=== PATIENT | female | born 1945 | race Caucasian/White ===

== ENCOUNTER 2018-07-22 14:06 | Inpatient (IN) | payer OTHER ==
[2018-07-22] MEDS ORDERED: ADVAIR HFA 230-12 GM INH (14:39)
[2018-07-22] MEDS ORDERED: SPIRIVA18 MCG INH (14:39)
[2018-07-22 15:14] LABS: APTT 24.8 SECONDS (22.8-39.4); INR 1.09 (0.85-1.17); PROTIME 13.6 SECONDS (11.6-15.0)
[2018-07-22 15:19] LABS: ALKALINE PHOSPHATASE 102 U/L (46-116); ALT (SGPT) 18 U/L (10-68); CALC OSMOLALITY 268 mosm/kg (275-300); CALCIUM 9.1 mg/dL (8.5-10.1); CARBON DIOXIDE 35.8 mmol/L (21.0-32.0); CHLORIDE - SERUM 94 mmol/L (98-107); CREATININE - SERUM 0.5 mg/dL (0.6-1.3); GLUCOSE 112 mg/dL (74-106); POTASSIUM - SERUM 3.6 mmol/L (3.5-5.1); PROTEIN - SERUM 7.7 g/dL (6.4-8.2); SODIUM 134 mmol/L (136-145); UREA NITROGEN 12 mg/dL (7-18); eGFR NON AFRICAN AMERICAN > 90 mL/min (90-120)
[2018-07-22 15:29] LABS: HEMATOCRIT 38.5 % (36.0-48.0); HEMOGLOBIN 12.8 g/dL (12-16); MCH 30.3 pg (26.0-34.0); MCHC 33.2 g/dL (31.0-37.0); MEAN PLATELET VOLUME 8.7 fL (7.4-10.4); PLATELET COUNT 309 10x3/uL (130-400); RBC 4.23 10x6/uL (4.00-5.40); RDW 14.7 % (11.5-14.5); WBC 21.9 10x3/uL (4.8-10.8)
[2018-07-22 15:31] LABS: CKMB 1.2 U/L (0.0-3.6); CREATINE KINASE 35 UL (21-215); PRO BNP 50 pg/mL (0-125)
[2018-07-22 15:58] LABS: TROPONIN-I < 0.017 ng/mL (0.000-0.060)
[2018-07-22 16:00] VITALS: BP 122/56
[2018-07-22 16:15] LABS: EOSINOPHILS 1 % (0-7); LYMPHOCYTES 13 % (15-50); MONOCYTES 4 % (2-11); NEUTROPHILS 81 % (40-80); PLATELET ESTIMATE NORMAL
[2018-07-22 17:00] VITALS: BP 118/76
--- NOTE | 2018-07-22 17:20 | NUR ---
IV ROCEPHIN INFUSION COMPLETE AT THIS TIME.
[2018-07-22 17:50] VITALS: BP 117/58
--- NOTE | 2018-07-22 18:20 | NUR ---
ARRIVE TO ROOM VIA STRETCHER. AMBULATES TO BED INDEPENDENTLY. HOME OXYGEN TAKE LABELLED WITH PATIENT STICKER. GAIT STEADY. AZITHROMYCIN INFUSING ORDERED. ALERT AND ORIENTED X4. CONTINUE ADMISSION PROCESS. CONTINUE PLAN OF CARE AND SAFETY PRECAUTIONS.
[2018-07-22] MEDS ORDERED: HYDROCHLOROTH12.5 M1 PO (18:29)
[2018-07-22] MEDS ORDERED: ALBUTEROL SULF8.5 GM INH (18:29)
[2018-07-22] MEDS ORDERED: BUSPAR5 MG PO (18:30)
[2018-07-22] MEDS ORDERED: PULMICORT0.25 MG/1 INH (18:31)
[2018-07-22 18:40] VITALS: BP 114/84; BMI 21.3
--- NOTE | 2018-07-22 19:35 | NUR ---
PATIENT RESTING IN BED AND DENIES NEEDS AT THIS TIME. BED IN LOWEST POSITION AND CALL LIGHT WITHIN REACH. ENCOURAGED THE PATIENT TO CALL IF SHE HAS NEEDS. WILL CONTINUE TO MONITOR.
[2018-07-22 20:00] VITALS: BP 125/67
[2018-07-23] VITALS: BP 126/72
[2018-07-23 04:00] VITALS: BP 122/64
[2018-07-23 06:09] LABS: BASOPHILS 0 % (0-2); EOSINOPHILS 0 % (0-7); HEMATOCRIT 34.9 % (36.0-48.0); HEMOGLOBIN 11.4 g/dL (12-16); IMMATURE GRANULOCYTES 0.2 % (0-5); LYMPHOCYTES 2.8 % (15-50); MCH 29.9 pg (26.0-34.0); MCHC 32.7 g/dL (31.0-37.0); MCV 91.6 fL (80.0-100.0); MEAN PLATELET VOLUME 8.6 fL (7.4-10.4); MONOCYTES 1.4 % (2-11); NEUTROPHILS 95.6 % (40-80); PLATELET COUNT 321 10x3/uL (130-400); RBC 3.81 10x6/uL (4.00-5.40); RDW 14.8 % (11.5-14.5)
[2018-07-23 06:45] LABS: WBC 15.4 10x3/uL (4.8-10.8)
[2018-07-23 06:49] LABS: ALBUMIN 2.5 g/dL (3.4-5.0); ALKALINE PHOSPHATASE 87 U/L (46-116); ALT (SGPT) 16 U/L (10-68); BILIRUBIN - TOTAL 0.16 mg/dL (0.2-1.3); CALC OSMOLALITY 277 mosm/kg (275-300); CALCIUM 8.8 mg/dL (8.5-10.1); CARBON DIOXIDE 36.6 mmol/L (21.0-32.0); CHLORIDE - SERUM 100 mmol/L (98-107); CREATININE - SERUM 0.4 mg/dL (0.6-1.3); GLUCOSE 157 mg/dL (74-106); MAGNESIUM - SERUM 2.1 mg/dL (1.8-2.4); PROTEIN - SERUM 6.8 g/dL (6.4-8.2); SODIUM 138 mmol/L (136-145); UREA NITROGEN 10 mg/dL (7-18); eGFR NON AFRICAN AMERICAN > 90 mL/min (90-120)
--- NOTE | 2018-07-23 07:20 | NUR ---
PT ALERT AND ORIENTED, SITTING UP IN BED. UP AD ALCIRA. SCDS ON. EXPIRATORY WHEEZES ASCULTATED BILATERAL UPPER LOBES, LLL AND RML. ON 4.5L O2, NC. STRICT I&O. ON TELEMETRY 97 SR. IV TO LEFT AC, SL. SITE PATENT WITHOUT REDNESS OR SWELLING. NO C/O PAIN. NO S/S OF ACUTE DISTRESS NOTED. CALL LIGHT IN REACH. PT DENIES ANYTHING FURTHER AT THIS TIME. WILL CONTINUE TO MONITOR.
[2018-07-23 08:27] VITALS: BP 107/55
[2018-07-23 09:51] VITALS: BMI 21.2
[2018-07-23 16:12] VITALS: BP 108/56
--- NOTE | 2018-07-23 18:35 | NUR ---
I have reviewed this patient and I concur with the Shift Assessment completed by the Licensed Practical Nurse today this shift.
--- NOTE | 2018-07-23 19:24 | NUR ---
PT RESTING IN BED, EYES OPEN. NO C/O PAIN. NO S/S OF ACUTE DISTRESS NOTED. CALL LIGHT IN REACH. DENIES ANYTHING FURTHER.
[2018-07-23 20:00] VITALS: BP 107/59
[2018-07-24] VITALS: BP 121/64
[2018-07-24 04:30] VITALS: BP 118/66
[2018-07-24 07:41] LABS: HEMATOCRIT 34.9 % (36.0-48.0); HEMOGLOBIN 11.3 g/dL (12-16); MCH 29.9 pg (26.0-34.0); MCHC 32.4 g/dL (31.0-37.0); MCV 92.3 fL (80.0-100.0); MEAN PLATELET VOLUME 8.7 fL (7.4-10.4); PLATELET COUNT 393 10x3/uL (130-400); RBC 3.78 10x6/uL (4.00-5.40); RDW 14.8 % (11.5-14.5); WBC 21.6 10x3/uL (4.8-10.8)
[2018-07-24 07:53] VITALS: BP 125/60
[2018-07-24 07:54] LABS: ALBUMIN 2.7 g/dL (3.4-5.0); ALKALINE PHOSPHATASE 87 U/L (46-116); BILIRUBIN - TOTAL 0.17 mg/dL (0.2-1.3); CALCIUM 8.8 mg/dL (8.5-10.1); CARBON DIOXIDE 36.8 mmol/L (21.0-32.0); CHLORIDE - SERUM 98 mmol/L (98-107); CREATININE - SERUM 0.5 mg/dL (0.6-1.3); GLUCOSE 130 mg/dL (74-106); POTASSIUM - SERUM 3.8 mmol/L (3.5-5.1); PROTEIN - SERUM 6.9 g/dL (6.4-8.2); SODIUM 136 mmol/L (136-145); eGFR NON AFRICAN AMERICAN > 90 mL/min (90-120)
[2018-07-24 07:55] LABS: ALT (SGPT) 28 U/L (10-68); CALC OSMOLALITY 274 mosm/kg (275-300); UREA NITROGEN 14 mg/dL (7-18)
[2018-07-24 08:44] LABS: LYMPHOCYTES 6 % (15-50); MONOCYTES 8 % (2-11); NEUTROPHILS 84 % (40-80); PLATELET ESTIMATE NORMAL
[2018-07-24 11:58] VITALS: BP 115/57
--- NOTE | 2018-07-24 15:58 | NUR ---
I have reviewed this patient and I concur with the Shift Assessment completed by the Licensed Practical Nurse today this shift.
--- NOTE | 2018-07-24 16:20 | MORECARE ---
CASE MANAGEMENT DISCHARGE SUMMARY PATIENT: DEMETRIS COHN UNIT: [id number] ADM DATE: 07/22/18 AGE: 72 : 43 SEX: F ROOM/BED: D.1210 AUTHOR: TEODORO CALVO PHYSICIAN: REFERRING PHYSICIAN: LIZ RIDLEY MD DATE OF SERVICE: 07/24/18 Discharge Plan Patient Name: DEMETRIS COHN Facility: [facility]:[place] : 1945 Planned Disposition: Anticipated Discharge Date: Discharge Date: Expected LOS: Initial Reviewer: [id number] Initial Review Date: 07/24/2018 Generated: 07/24/18 5:20 pm Comments DCP- Discharge Planning Updated by [email or web address]: Theresa Hilario on 07/24/18 3:[address] Patient Name: DEMETRIS COHN Admission Status: ER Accout number: [id number] Admission Date: 07-22-2018 : 1945 Admission Diagnosis: Attending: MAME RIDLEY Current LOS: 2 Anticipated DC Date: Planned Disposition: Primary Insurance: GIVTED Discharge Planning Comments: CM MEET WITH PT AFTER GETTING VERBAL CONSENT TO CONTINUE WITH INITAL ASSESSMENT AND DISCHARGE NEEDS. PT LIVES AT HOME ALONE AND STATES HOME IS A SAFE DISCHARGE. PT HAS O2 AND NEBULIZERS AT HOME. SHE STATES MAY NEED MEALS ON WHEELS, HH, OR IPRH WHEN DISCHARGED. CM WILL FOLLOW AND ASSIST WITH DC NEEDS. Quiller Hand: Theresa Hilario DCPIA - Discharge Planning Initial Assessment Updated by [id number]: Theresa Hilario on 07/24/18 4:14 pm * Is the patient Alert and Oriented? Yes * PCP [facility] * [facility] * ADLs Independent * Equipment Nebulizer Oxygen * Community resources currently utilized None * Additional services required to return to the preadmission environment? No * Can the patient safely return to the preadmission environment? Yes * Has this patient been hospitalized within the prior 30 days at any hospital? No Patient Name: DEMETRIS COHN Page [id number] at 1620 All edits/amendments must be made on the electronic document DICTATION DATE: 07/24/18 1614 GUEST HISTORY CLERK: DM 07/24/181618 RPT#: [id number] DC DATE: STATUS: ADM IN [facility] [address] [place] [address] END OF REPORT
[2018-07-24 16:42] VITALS: BP 141/67
--- NOTE | 2018-07-24 16:48 | NUR ---
UPON ENTERING THE PATIENTS ROOM THIS NURSE SAW THE PATIENT USING A RESCUE ALBUTEROL INHALER, 3 PUFFS. EDUCATION ON PATIENT SAFETY/POLICY ABOUT TAKING OR USING HOME MEDICATIONS IS NOT SAFE AND AGAINST POLICY TO HAVE IN THE ROOMS. THERE IS ALSO A WHITE MEDICATION BOTTLE IN THE TOP DRAWER. WHEN THIS WAS TOLD TO THE PATIENT SHE BECAME VERY UPSET STATING 'IF YOU TAKE THAT AND TELL ME I CAN NOT HAVE IT I WILL LEAVE OUT THE FRONT DOOR". I TRIED TO EXPLAIN SAFETY TO HER, SHE WAS NOT INTERESTED. THIS INFORMATION WAS PASSED ON TO HER NURSE, JUAN JOSE WELL RTSHOAIB.
[2018-07-24] MEDS ORDERED: HYDROCHLOROTH12.5 M1 PO (17:20)
--- NOTE | 2018-07-24 18:00 | NUR ---
PATIENT RESTING COMFORTABLY WATCHING TV. NO SIGNS OF DISTRESS. ALL NEEDS MET AT THIS TIME.
[2018-07-25 06:52] LABS: BASOPHILS 0 % (0-2); EOSINOPHILS 0 % (0-7); HEMATOCRIT 33.6 % (36.0-48.0); HEMOGLOBIN 10.9 g/dL (12-16); IMMATURE GRANULOCYTES 0.2 % (0-5); LYMPHOCYTES 6.1 % (15-50); MCH 30.2 pg (26.0-34.0); MCHC 32.4 g/dL (31.0-37.0); MCV 93.1 fL (80.0-100.0); MEAN PLATELET VOLUME 8.4 fL (7.4-10.4); NEUTROPHILS 86.7 % (40-80); PLATELET COUNT 315 10x3/uL (130-400); RBC 3.61 10x6/uL (4.00-5.40); RDW 14.8 % (11.5-14.5)
[2018-07-25 07:07] LABS: WBC 12.8 10x3/uL (4.8-10.8)
[2018-07-25 07:09] LABS: ALBUMIN 2.4 g/dL (3.4-5.0); ALKALINE PHOSPHATASE 75 U/L (46-116); BILIRUBIN - TOTAL 0.19 mg/dL (0.2-1.3); CALC OSMOLALITY 279 mosm/kg (275-300); CALCIUM 8.6 mg/dL (8.5-10.1); CARBON DIOXIDE 38.4 mmol/L (21.0-32.0); CHLORIDE - SERUM 99 mmol/L (98-107); CREATININE - SERUM 0.5 mg/dL (0.6-1.3); GLUCOSE 132 mg/dL (74-106); POTASSIUM - SERUM 4.3 mmol/L (3.5-5.1); PROTEIN - SERUM 6.3 g/dL (6.4-8.2); SODIUM 139 mmol/L (136-145); UREA NITROGEN 13 mg/dL (7-18); eGFR NON AFRICAN AMERICAN > 90 mL/min (90-120)
[2018-07-25 07:12] LABS: ALT (SGPT) 17 U/L (10-68)
--- NOTE | 2018-07-25 07:25 | NUR ---
i agree with cut roll machine operator assessment.
[2018-07-25 08:03] VITALS: BP 122/80
--- NOTE | 2018-07-25 10:34 | NUR ---
PATIENT C/O CONSTIPATION; REQUESTS MIRALAX. ALSO C/O STUFFY NOSE; REQUESTS SALINE MIST.
[2018-07-25 12:26] VITALS: BP 116/62
--- NOTE | 2018-07-25 13:26 | NUR ---
I have reviewed this patient and I concur with the Shift Assessment completed by the Licensed Practical Nurse today this shift.
--- NOTE | 2018-07-25 16:30 | NUR ---
WENT INTO ROOM AND NOTED THAT LEVAQUIN THAT WAS HUNG EARLIER DID NOT RUN. WHEN STARTED RUNNING IV WAS LEAKING AND INFILTRATED. ATTEMPTED TWICE TO RESITE BUT WAS UNABLE. NO IV ACCESS.
[2018-07-25 17:21] VITALS: BP 156/78
[2018-07-25 21:00] VITALS: BP 137/76
--- NOTE | 2018-07-26 02:39 | NUR ---
1930 REPORT RECIEVED, SHIFT ASSESSMENT COMPLETE, PLEASE SEE FLOW SHEETS FOR DETAILS. MILDLY TOLERATES BEING OFF BIPAP TO AMBULATE TO TOILET. VOIDED. BACK TO BED AND BACK ON BIPAP. BED LOW AND LOCKED, CALL LIGHT IN REACH. CONTINUEING CURRENT CARE PLANS. 2199 REQUESTED BIPAP OFF, THIS WAS PROVIDED AND TOLERATING WELL. 214 UP TO RESTROOM, UPON RETURN TO BED BIPAP BACK ON AND TOLERATING WELL. AMBULATION IS CONTUOUSLY MORE STRENUOUS ON PATIENT, NOW REQUIRES ONE PERSON ASSIST. BED LOW AND LOCKED, CALL LIGHT IN REACH. WILL CONTINUE PLAN OF CARE.
--- NOTE | 2018-07-26 07:00 | NUR ---
RESTING QUIETLY IN BED, ALERT, ORIENTED, REQUESTING ASSIST WITH TRANSFERRING TO BR, IV TO RIGHT AC HIGHLY POSITIONAL. DENIES PAIN OR FURTHER NEEDS, CALL LIGHT AT HAND, INSTRUCTED TO CALL WITH NEEDS.
[2018-07-26 07:58] LABS: BASOPHILS 0 % (0-2); EOSINOPHILS 0.1 % (0-7); HEMATOCRIT 35.1 % (36.0-48.0); HEMOGLOBIN 11.2 g/dL (12-16); IMMATURE GRANULOCYTES 0.3 % (0-5); LYMPHOCYTES 2.5 % (15-50); MCH 29.3 pg (26.0-34.0); MCHC 31.9 g/dL (31.0-37.0); MCV 91.9 fL (80.0-100.0); MEAN PLATELET VOLUME 8.6 fL (7.4-10.4); MONOCYTES 2.1 % (2-11); PLATELET COUNT 356 10x3/uL (130-400); RBC 3.82 10x6/uL (4.00-5.40)
[2018-07-26 08:04] VITALS: BP 128/72
[2018-07-26 08:04] LABS: WBC 16.5 10x3/uL (4.8-10.8)
[2018-07-26 08:05] LABS: % SATURATION 6 % (15-55); IRON 15 ug/dl (35-150); TOTAL IRON BIND CAPACITY 227 ug/dl (260-445); UNSAT IRON BIND CAPACITY 212 ug/dl (150-375)
[2018-07-26 08:22] LABS: ALBUMIN 2.5 g/dL (3.4-5.0); ALKALINE PHOSPHATASE 79 U/L (46-116); ALT (SGPT) 16 U/L (10-68); CALC OSMOLALITY 278 mosm/kg (275-300); CALCIUM 8.6 mg/dL (8.5-10.1); CARBON DIOXIDE 34.7 mmol/L (21.0-32.0); CHLORIDE - SERUM 98 mmol/L (98-107); CREATININE - SERUM 0.4 mg/dL (0.6-1.3); FERRITIN 124 ng/mL (3-244); GLUCOSE 172 mg/dL (74-106); MAGNESIUM - SERUM 1.9 mg/dL (1.8-2.4); PHOSPHOROUS 3.4 mg/dL (2.5-4.9); POTASSIUM - SERUM 3.7 mmol/L (3.5-5.1); PRE-ALBUMIN 13.9 mg/dL (18.0-35.7); PROTEIN - SERUM 6.6 g/dL (6.4-8.2); SODIUM 137 mmol/L (136-145); UREA NITROGEN 14 mg/dL (7-18); eGFR NON AFRICAN AMERICAN > 90 mL/min (90-120)
--- NOTE | 2018-07-26 09:48 | MORECARE ---
CASE MANAGEMENT DISCHARGE SUMMARY PATIENT: DEMETRIS COHN UNIT: [id number] ADM DATE: 07/22/18 AGE: 72 : 43 SEX: F ROOM/BED: D.1210 AUTHOR: TEODORO CALVO PHYSICIAN: REFERRING PHYSICIAN: LIZ RIDLEY MD DATE OF SERVICE: 07/26/18 Discharge Plan Patient Name: DEMETRIS COHN Facility: [facility]:[place] : 1945 Planned Disposition: Anticipated Discharge Date: Discharge Date: Expected LOS: Initial Reviewer: [id number] Initial Review Date: 07/24/2018 Generated: 07/26/18 10:47 am DCP- Discharge Planning Updated by [id number]: Theresa Hilario on 07/24/18 3:[address] Patient Name: DEMETRIS COHN Admission Status: ER Accout number: [id number] Admission Date: 07-22-2018 : 1945 Admission Diagnosis: Attending: MAME RIDLEY Current LOS: 2 Anticipated DC Date: Planned Disposition: Primary Insurance: [employer] Discharge Planning Comments: CM MEET WITH PT AFTER GETTING VERBAL CONSENT TO CONTINUE WITH INITAL ASSESSMENT AND DISCHARGE NEEDS. PT LIVES AT HOME ALONE AND STATES HOME IS A SAFE DISCHARGE. PT HAS O2 AND NEBULIZERS AT HOME. SHE STATES MAY NEED MEALS ON WHEELS, HH, OR IPRH WHEN DISCHARGED. CM WILL FOLLOW AND ASSIST WITH DC NEEDS. Licensed Electrician: Theresa Hilario DCPIA - Discharge Planning Initial Assessment Updated by [id number]: Theresa Hilario on 07/24/18 4:14 pm * Is the patient Alert and Oriented? Yes * PCP [facility] * [facility] * ADLs Independent * Equipment Nebulizer Oxygen * Community resources currently utilized None * Additional services required to return to the preadmission environment? No * Can the patient safely return to the preadmission environment? Yes * Has this patient been hospitalized within the prior 30 days at any hospital? No Last DP export: 07/24/18 3:20 p Patient Name: DEMETRIS COHN Page 53164 at 0948 All edits/amendments must be made on the electronic document DICTATION DATE: 07/26/18946 TOBACCO CURER: KIM 07/26/18946 RPT#: [id number] DC DATE: STATUS: ADM IN [facility] [address] [place] [address] END OF REPORT
[2018-07-26 13:00] VITALS: BP 149/71
[2018-07-26 19:51] VITALS: BP 130/65
--- NOTE | 2018-07-26 19:55 | NUR ---
EVENING ROUNDS COMPLETED. REPORT RECEIVED. PT SITTING UP IN BED WITH EYES OPEN, RR EVEN AND UNLABORED. OXYGEN AT 4 LITERS BY NASAL CANNULA. BED IN LOW POSITION. NO S/S OF DISTRESS NOTED. INTRODUCED SELF TO PT. PT DENIES FURTHER NEEDS AT THIS TIME. CALL LIGHT IN REACH. WILL CTM.
[2018-07-27] VITALS (7 sets, daily range): BP systolic 124–143; BP diastolic 59–72
--- NOTE | 2018-07-27 02:18 | NUR ---
ADMINISTERED ORDERED TUSSIONEX 5 MLS FOR PATIENT COMPLAINTS OF COUGH.
--- NOTE | 2018-07-27 04:52 | NUR ---
I have reviewed this patient and I concur with the Shift Assessment completed by the Licensed Practical Nurse today this shift.
--- NOTE | 2018-07-27 05:28 | NUR ---
PT REFUSES MORNING LAB DRAWS, PT STATES "ITS JUST TOO MUCH ON HER RIGHT NOW". WILL CTM.
[2018-07-27 07:13] LABS: ALBUMIN 2.3 g/dL (3.4-5.0); ALKALINE PHOSPHATASE 71 U/L (46-116); ALT (SGPT) 16 U/L (10-68); BILIRUBIN - TOTAL 0.25 mg/dL (0.2-1.3); CALC OSMOLALITY 276 mosm/kg (275-300); CALCIUM 8.7 mg/dL (8.5-10.1); CARBON DIOXIDE 35.2 mmol/L (21.0-32.0); CHLORIDE - SERUM 99 mmol/L (98-107); CREATININE - SERUM 0.5 mg/dL (0.6-1.3); GLUCOSE 147 mg/dL (74-106); MAGNESIUM - SERUM 2.1 mg/dL (1.8-2.4); PROTEIN - SERUM 6.2 g/dL (6.4-8.2); SODIUM 137 mmol/L (136-145); UREA NITROGEN 12 mg/dL (7-18); eGFR NON AFRICAN AMERICAN > 90 mL/min (90-120)
[2018-07-27 07:16] LABS: POTASSIUM - SERUM 4.5 mmol/L (3.5-5.1)
[2018-07-27 07:47] LABS: HEMATOCRIT 32.6 % (36.0-48.0); HEMOGLOBIN 10.6 g/dL (12-16); MCH 29.8 pg (26.0-34.0); MCHC 32.5 g/dL (31.0-37.0); MCV 91.6 fL (80.0-100.0); MEAN PLATELET VOLUME 9.1 fL (7.4-10.4); PLATELET COUNT 325 10x3/uL (130-400); RBC 3.56 10x6/uL (4.00-5.40); RDW 14.6 % (11.5-14.5); WBC 23.7 10x3/uL (4.8-10.8)
[2018-07-27 08:11] LABS: IMMUNOGLOBULIN A 241 mg/dL (64-422)
[2018-07-27 08:12] LABS: LYMPHOCYTES 1 % (15-50); MONOCYTES 4 % (2-11); NEUTROPHILS 92 % (40-80)
[2018-07-27 08:15] LABS: PLATELET ESTIMATE NORMAL
--- NOTE | 2018-07-27 09:16 | NUR ---
MORNING ASSESSMENT COMPLETE. SEE ASSESSMENT FLOWSHEET FOR FURTHER DETAILS. PT LYING IN BED AAO X4 TO PERSON, PLACE, TIME, AND SITUATION. DENIES NEEDS AT THIS TIME. CL IN REACH. SIDE RAILS UP X3 FOR PT SAEFTY. BED IN LOWEST POSITION.
--- NOTE | 2018-07-27 15:18 | NUR ---
R AC PIV INFILTRATED. RESITED 22G PIV TO L WRIST X1 ATTPEMPT. FLUSHES WELL. SITED C/D/I.
--- NOTE | 2018-07-27 17:29 | NUR ---
PT SITTING UP IN BED. DENIES NEEDS AT THIS TIME. NO SIGNS OF DISTRESS NOTED. WILL CONTINUE TO MONITOR
--- NOTE | 2018-07-27 19:10 | NUR ---
ALERT AND ORIENTED. DAUGHTER AT BEDSIDE. LUNGS PRESENT WITH BILATERAL EXPIRATORY WHEEZES. WEARING 4L NASAL CANNULA. TELE MONITOR 75 SINUS RHYTHM. LEFT WRIST IV INFUSING VANCOMYCIN AT THIS TIME. DENIES NEEDS. CALL LIGHT IN REACH.
[2018-07-28] VITALS: BP 122/57
--- NOTE | 2018-07-28 01:38 | NUR ---
I have reviewed this patient and I concur with the Shift Assessment completed by the Licensed Practical Nurse today this shift.
--- NOTE | 2018-07-28 02:29 | NUR ---
PT TOOK OFF BIPAP AT 0229 WORE FOR APPROX 2 HRS
[2018-07-28 04:00] VITALS: BP 125/66
[2018-07-28 06:04] LABS: BASOPHILS 0 % (0-2); EOSINOPHILS 0 % (0-7); HEMATOCRIT 32.2 % (36.0-48.0); HEMOGLOBIN 10.6 g/dL (12-16); IMMATURE GRANULOCYTES 0.3 % (0-5); LYMPHOCYTES 3.3 % (15-50); MCHC 32.9 g/dL (31.0-37.0); MCV 91.2 fL (80.0-100.0); MEAN PLATELET VOLUME 8.4 fL (7.4-10.4); MONOCYTES 2.8 % (2-11); NEUTROPHILS 93.6 % (40-80); PLATELET COUNT 327 10x3/uL (130-400); RBC 3.53 10x6/uL (4.00-5.40); RDW 14.5 % (11.5-14.5)
[2018-07-28 06:08] LABS: WBC 15.3 10x3/uL (4.8-10.8)
[2018-07-28 06:43] LABS: ALBUMIN 2.1 g/dL (3.4-5.0); ALKALINE PHOSPHATASE 62 U/L (46-116); ALT (SGPT) 16 U/L (10-68); BILIRUBIN - TOTAL 0.27 mg/dL (0.2-1.3); CALC OSMOLALITY 279 mosm/kg (275-300); CALCIUM 8.3 mg/dL (8.5-10.1); CARBON DIOXIDE 36.1 mmol/L (21.0-32.0); CHLORIDE - SERUM 99 mmol/L (98-107); CREATININE - SERUM 0.5 mg/dL (0.6-1.3); GLUCOSE 155 mg/dL (74-106); POTASSIUM - SERUM 4.3 mmol/L (3.5-5.1); PROTEIN - SERUM 5.9 g/dL (6.4-8.2); SODIUM 138 mmol/L (136-145); UREA NITROGEN 14 mg/dL (7-18); eGFR NON AFRICAN AMERICAN > 90 mL/min (90-120)
--- NOTE | 2018-07-28 07:38 | NUR ---
MORNING ASSESSMENT COMPLETE. PT UP IN BATHROOM. DENIES NEEDS AT THIS TIME. CL IN REACH. BED IN LOWEST POSITION. NO SIGNS OF DISTRESS NOTED.
[2018-07-28 07:56] VITALS: BP 127/66
[2018-07-28 12:06] VITALS: BP 139/61
--- NOTE | 2018-07-28 14:05 | NUR ---
L WRIST PIV INFILTRATED. RESITED TO R FA 22G X1 ATTEMPT. SITE FLUSHES WELL. C/D/I
[2018-07-28 15:56] VITALS: BP 147/60
--- NOTE | 2018-07-28 19:30 | NUR ---
GREETED PATIENT AND INTRODUCED MYSELF HER NURSE. PATIENT IS LAYING IN BED IN SUPINE POSITION. HOB AT 30 DEGREES. O2 AT 4L IN USE VIA NC. DENIES ANY NEEDS AT THIS TIME. CALL LIGHT IN REACH.
[2018-07-29] VITALS: BP 151/72
--- NOTE | 2018-07-29 03:22 | NUR ---
PATIENT RESTING QUIETLY LAYING ON LEFT SIDE. HOB AT 30 DEGREES. RESPIRATIONS EVEN. NO S/S OF DISTRESS. CALL LIGHT IN REACH.
[2018-07-29 04:00] VITALS: BP 127/67
[2018-07-29 05:48] LABS: BASOPHILS 0 % (0-2); EOSINOPHILS 0.1 % (0-7); HEMATOCRIT 31.8 % (36.0-48.0); HEMOGLOBIN 10.1 g/dL (12-16); IMMATURE GRANULOCYTES 0.3 % (0-5); LYMPHOCYTES 3.2 % (15-50); MCH 29.1 pg (26.0-34.0); MCHC 31.8 g/dL (31.0-37.0); MCV 91.6 fL (80.0-100.0); MEAN PLATELET VOLUME 8.4 fL (7.4-10.4); MONOCYTES 3.8 % (2-11); NEUTROPHILS 92.6 % (40-80); PLATELET COUNT 350 10x3/uL (130-400); RBC 3.47 10x6/uL (4.00-5.40); RDW 14.6 % (11.5-14.5); WBC 13.6 10x3/uL (4.8-10.8)
[2018-07-29 06:06] LABS: ALBUMIN 2.1 g/dL (3.4-5.0); ALKALINE PHOSPHATASE 60 U/L (46-116); ALT (SGPT) 17 U/L (10-68); BILIRUBIN - TOTAL 0.25 mg/dL (0.2-1.3); CALC OSMOLALITY 277 mosm/kg (275-300); CALCIUM 8.4 mg/dL (8.5-10.1); CARBON DIOXIDE 36.8 mmol/L (21.0-32.0); CHLORIDE - SERUM 100 mmol/L (98-107); CREATININE - SERUM 0.4 mg/dL (0.6-1.3); GLUCOSE 144 mg/dL (74-106); POTASSIUM - SERUM 4.2 mmol/L (3.5-5.1); PROTEIN - SERUM 5.8 g/dL (6.4-8.2); SODIUM 138 mmol/L (136-145); UREA NITROGEN 11 mg/dL (7-18); eGFR NON AFRICAN AMERICAN > 90 mL/min (90-120)
[2018-07-29 07:26] VITALS: BP 128/65
--- NOTE | 2018-07-29 07:40 | NUR ---
RECEIVED A/A/OX4. DENIES ANY PAIN OR DISCOMFORT AND VOICES NO REQUESTS. 02 ON VIA N/C AT 4 L/M WITH NOT RESP DISTRESS AT PRESENT TIME. STATES SHE DOES GET SOB WHEN SHE GETS UP TO BATHROOM. ASSESSMENT COMPLETED AND WILL CONTINUE POC.
--- NOTE | 2018-07-29 09:39 | NUR ---
Nutrition follow up Regular diet with 75% intake of meals yesterday BM today Pt reports appetite is normal and she is ordering Boost Pt has no questions about nutrition at this time RD following
[2018-07-29 12:39] VITALS: BP 141/66
--- NOTE | 2018-07-29 13:35 | MORECARE ---
CASE MANAGEMENT DISCHARGE SUMMARY PATIENT: DEMETRIS COHN UNIT: [id number] ADM DATE: 07/22/18 AGE: 72 : 43 SEX: F ROOM/BED: D.1210 AUTHOR: TEODORO CALVO PHYSICIAN: REFERRING PHYSICIAN: LIZ RIDLEY MD DATE OF SERVICE: 07/29/18 Discharge Plan Patient Name: DEMETRIS COHN Facility: [facility]:[place] : 1945 Planned Disposition: Anticipated Discharge Date: Discharge Date: Expected LOS: Initial Reviewer: [id number] Initial Review Date: 07/24/2018 Generated: 07/29/18 2:35 pm Comments DCP- Discharge Planning Updated by [id number]: Tiki Chino on 07/29/18 12:[address] Patient Name: DEMETRIS COHN Admission Status: ER Accout number: [id number] Admission Date: 07-22-2018 : 1945 Admission Diagnosis:SHORTNESS OF BREATH Attending: MAME RIDLEY Current LOS: 7 Anticipated DC Date: Planned Disposition: Primary Insurance: NOVASYSMCR Discharge Planning Comments: pt has home o2 thru [employer] and pt wants [employer] for trilogy.. analy signed [employer] is in process of getting pt set up. Skilled Trades Teacher: Tiki Chino DCP- Discharge Planning Updated by [id number]: Theresa Hilario on 07/24/18 3:[address] Patient Name: DEMETRIS COHN Admission Status: ER Accout number: [id number] Admission Date: 07-22-2018 : 1945 Admission Diagnosis: Attending: MAME RIDLEY Current LOS: 2 Anticipated DC Date: Planned Disposition: Primary Insurance: NOVASYSMCR Discharge Planning Comments: CM MEET WITH PT AFTER GETTING VERBAL CONSENT TO CONTINUE WITH INITAL ASSESSMENT AND DISCHARGE NEEDS. PT LIVES AT HOME ALONE AND STATES HOME IS A SAFE DISCHARGE. PT HAS O2 AND NEBULIZERS AT HOME. SHE STATES MAY NEED MEALS ON WHEELS, HH, OR IPRH WHEN DISCHARGED. CM WILL FOLLOW AND ASSIST WITH DC NEEDS. Skilled Trades Teacher: Theresa Hilario DCPIA - Discharge Planning Initial Assessment Updated by [id number]: Theresa Hilario on 07/24/18 4:14 pm * Is the patient Alert and Oriented? Yes * PCP [facility] * [facility] * ADLs Independent * Equipment Nebulizer Oxygen * Community resources currently utilized None * Additional services required to return to the preadmission environment? No * Can the patient safely return to the preadmission environment? Yes * Has this patient been hospitalized within the prior 30 days at any hospital? No Last DP export: 07/26/18 8:47 a Patient Name: DEMETRIS COHN Page 85647 at 1335 All edits/amendments must be made on the electronic document DICTATION DATE: 07/29/181333 CONCIERGE RECEPTIONIST: KIM 07/29/18 1334 RPT#: [id number] DC DATE: STATUS: ADM IN [facility] [address] [place] [address] END OF REPORT
[2018-07-29 16:33] VITALS: BP 125/69
--- NOTE | 2018-07-29 16:47 | MORECARE ---
CASE MANAGEMENT DISCHARGE SUMMARY PATIENT: DEMETRIS COHN UNIT: [id number] ADM DATE: 07/22/18 AGE: 72 : 43 SEX: F ROOM/BED: D.1210 AUTHOR: TEODORO CALVO PHYSICIAN: REFERRING PHYSICIAN: LIZ RIDLEY MD DATE OF SERVICE: 07/29/18 Discharge Plan Patient Name: DEMETRIS COHN Facility: [facility]:[place] : 1945 Planned Disposition: Anticipated Discharge Date: Discharge Date: Expected LOS: Initial Reviewer: [id number] Initial Review Date: 07/24/2018 Generated: 07/29/18 5:46 pm Comments DCP- Discharge Planning Updated by [id number]: Tiki Chino on 07/29/18 3:[address] Patient Name: DEMETRIS COHN Encounter No: [id number] : 1945 Primary Insurance: NOVASYSMCR Anticipated DC Date: Planned Disposition: External Planned Provider: : DCP follow-up note: Patient and family in agreement with discharge plan. No changes to plan. Case management will follow and assist as needed. Tiki NolviamackPatient Name: DEMETRIS COHN Admission Status: ER Accout number: [id number] Admission Date: 07-22-2018 : 1945 Admission Diagnosis:SHORTNESS OF BREATH Attending: MAME RIDLEY Current LOS: 7 Anticipated DC Date: Planned Disposition: Primary Insurance: NOVASYSMCR Discharge Planning Comments: Trilogy was approved and being delivered in am to pts room . Valuation Manager: Tiki Chino DCP- Discharge Planning Updated by [email or web address]: Tiki Chino on 07/29/18 12:[address] Patient Name: DEMETRIS COHN Admission Status: ER Accout number: [id number] Admission Date: 07-22-2018 : 1945 Admission Diagnosis:SHORTNESS OF BREATH Attending: MAME RIDLEY Current LOS: 7 Anticipated DC Date: Planned Disposition: Primary Insurance: NOVASYSMCR Discharge Planning Comments: pt has home o2 thru [employer] and pt wants [employer] for trilogy.. analy signed [employer] is in process of getting pt set up. Valuation Manager: Tikichaya De Souzaman DCP- Discharge Planning Updated by [email or web address]: Theresa Hilario on 07/24/18 3:[address] Patient Name: DEMETRIS COHN Admission Status: ER Accout number: [id number] Admission Date: 07-22-2018 : 1945 Admission Diagnosis: Attending: MAME RIDLEY Current LOS: 2 Anticipated DC Date: Planned Disposition: [facility] Discharge Planning Comments: CM MEET WITH PT AFTER GETTING VERBAL CONSENT TO CONTINUE WITH INITAL ASSESSMENT AND DISCHARGE NEEDS. PT LIVES AT HOME ALONE AND STATES HOME IS A SAFE DISCHARGE. PT HAS O2 AND NEBULIZERS AT HOME. SHE STATES MAY NEED MEALS ON WHEELS, HH, OR IPRH WHEN DISCHARGED. CM WILL FOLLOW AND ASSIST WITH DC NEEDS. Valuation Manager: Theresa Hilario DCPIA - Discharge Planning Initial Assessment Updated by [id number]: Theresa Hilario on 07/24/18 4:14 pm * Is the patient Alert and Oriented? Yes * PCP [facility] * [facility] * ADLs Independent * Equipment Nebulizer Oxygen * Community resources currently utilized None * Additional services required to return to the preadmission environment? No * Can the patient safely return to the preadmission environment? Yes * Has this patient been hospitalized within the prior 30 days at any hospital? No Coverage Notice Reviewer: [id number] - Tiki Chino Notice Issued Date-Time: 07/29/2018 9:30 Notice Type: Patient Choice Letter Notice Delivered To: Patient Relationship to Patient: Self Truck Rental Service Attendant Name: Delivery Method: HAND - Hand Delivered Jaz Days: Prior Verbal Notification: Recipient Understood Notice: Yes Recipient Signature: Yes Med Rec Note Co-signed by Attending: Coverage Notice Comment: Last DP export: 07/29/18 12:35 p Patient Name: DEMETRIS COHN Page [id number] at 1647 All edits/amendments must be made on the electronic document DICTATION DATE: 07/29/181645 DAIRY POWDER MIXER OPERATOR: KIM 07/29/181645 RPT#: [id number] DC DATE: STATUS: ADM IN [facility] [address] [place] [address] END OF REPORT
--- NOTE | 2018-07-29 19:15 | NUR ---
GREETED PATIENT AND INTRODUCED MYSELF. PATIENT IS LAYING IN BED WATCHING TV. PATIENT STATES SHE HAS HAD A GOOD DAY. DENIES ANY PAIN AT THIS TIME. DENIES ANY NEEDS. CALL LIGHT IN REACH.
[2018-07-29 20:00] VITALS: BP 125/75
--- NOTE | 2018-07-29 22:10 | NUR ---
DONNED BILEVEL 40 % FI02 SPO2 98 RR 23 PT TOLERATED APPLICATION WELL NO CYANOSIS EQUALATERAL EXCURSION NO IMMEDIATE S/S RESP DISTRESS
[2018-07-30] VITALS: BP 124/73
[2018-07-30 04:00] VITALS: BP 121/54
[2018-07-30 06:12] LABS: IGG SUBCLASS 1 468 mg/dL (248-810); IGG SUBCLASS 2 228 mg/dL (130-555); IGG SUBCLASS 3 93 mg/dL (15-102); IGG SUBCLASS 4 22 mg/dL (2-96); IMMUNOGLOBULIN G 772 mg/dL (700-1600)
[2018-07-30 07:06] LABS: BASOPHILS 0 % (0-2); EOSINOPHILS 0 % (0-7); HEMATOCRIT 31.2 % (36.0-48.0); HEMOGLOBIN 10.1 g/dL (12-16); IMMATURE GRANULOCYTES 0.3 % (0-5); LYMPHOCYTES 4.4 % (15-50); MCH 29.4 pg (26.0-34.0); MCHC 32.4 g/dL (31.0-37.0); MCV 90.7 fL (80.0-100.0); MEAN PLATELET VOLUME 8.2 fL (7.4-10.4); MONOCYTES 4.2 % (2-11); NEUTROPHILS 91.1 % (40-80); PLATELET COUNT 325 10x3/uL (130-400); RBC 3.44 10x6/uL (4.00-5.40); RDW 14.5 % (11.5-14.5); WBC 11.6 10x3/uL (4.8-10.8)
[2018-07-30 07:15] LABS: ALBUMIN 2.4 g/dL (3.4-5.0); ALKALINE PHOSPHATASE 63 U/L (46-116); ALT (SGPT) 18 U/L (10-68); BILIRUBIN - TOTAL 0.24 mg/dL (0.2-1.3); CALC OSMOLALITY 274 mosm/kg (275-300); CALCIUM 8.6 mg/dL (8.5-10.1); CARBON DIOXIDE 39.9 mmol/L (21.0-32.0); CHLORIDE - SERUM 99 mmol/L (98-107); CREATININE - SERUM 0.5 mg/dL (0.6-1.3); GLUCOSE 134 mg/dL (74-106); POTASSIUM - SERUM 4.6 mmol/L (3.5-5.1); SODIUM 137 mmol/L (136-145); UREA NITROGEN 11 mg/dL (7-18); eGFR NON AFRICAN AMERICAN > 90 mL/min (90-120)
[2018-07-30 08:20] VITALS: BP 128/62
--- NOTE | 2018-07-30 09:44 | NUR ---
ADMININSTERED MORNING MEDS WHOLE WITHOUT DIFFICULTY. DENIES ANY NEEDS OR PAIN. CONTINUES ON 3L VIA NC. NO SIGNS OF DISTRESS NOTED. CALL LIGHT WITHIN REACH, FALL PRECAUTIONS IN PLACE. WILL CONTINUE TO MONITOR
[2018-07-30 13:07] VITALS: BP 144/66
[2018-07-30 16:33] VITALS: BP 122/59
--- NOTE | 2018-07-30 18:10 | NUR ---
I have reviewed this patient and I concur with the Shift Assessment completed by the Licensed Practical Nurse today this shift.
[2018-07-30 19:27] LABS: APPEARANCE CLEAR (CLEAR); BILIRUBIN NEGATIVE (NEGATIVE); COLOR YELLOW (YELLOW); GLUCOSE NEGATIVE (NEGATIVE); KETONE NEGATIVE (NEGATIVE); NITRITE NEGATIVE (NEGATIVE); PROTEIN NEGATIVE (NEGATIVE); SPECIFIC GRAVITY 1.015 (1.005-1.020); UROBILINOGEN NORMAL (NORMAL)
[2018-07-30 21:34] VITALS: BP 133/70
--- NOTE | 2018-07-30 23:45 | NUR ---
PT IV INFILTRATED, RESTART IV , 22G PLACED IN RT AC, GOOD BLOOD FLOW, PT TOLLERATED WELL.
[2018-07-31] VITALS: BP 165/82
--- NOTE | 2018-07-31 02:15 | NUR ---
REST IN BED, CALL LIGHT IN REACH.
[2018-07-31 04:00] VITALS: BP 134/78
--- NOTE | 2018-07-31 04:28 | NUR ---
I AGREE WITH THE BEAUTY OPERATOR ASSESSMENT.
[2018-07-31 06:59] LABS: BASOPHILS 0 % (0-2); EOSINOPHILS 0.1 % (0-7); HEMATOCRIT 31.7 % (36.0-48.0); HEMOGLOBIN 10.3 g/dL (12-16); IMMATURE GRANULOCYTES 0.3 % (0-5); LYMPHOCYTES 4.4 % (15-50); MCH 29.3 pg (26.0-34.0); MCHC 32.5 g/dL (31.0-37.0); MCV 90.1 fL (80.0-100.0); MEAN PLATELET VOLUME 8.3 fL (7.4-10.4); MONOCYTES 3.3 % (2-11); NEUTROPHILS 91.9 % (40-80); PLATELET COUNT 370 10x3/uL (130-400); RBC 3.52 10x6/uL (4.00-5.40); RDW 14.5 % (11.5-14.5); WBC 11.9 10x3/uL (4.8-10.8)
[2018-07-31 07:22] LABS: ALBUMIN 2.4 g/dL (3.4-5.0); ALKALINE PHOSPHATASE 62 U/L (46-116); ALT (SGPT) 19 U/L (10-68); BILIRUBIN - TOTAL 0.26 mg/dL (0.2-1.3); CALC OSMOLALITY 276 mosm/kg (275-300); CALCIUM 8.5 mg/dL (8.5-10.1); CARBON DIOXIDE 36.8 mmol/L (21.0-32.0); CHLORIDE - SERUM 99 mmol/L (98-107); CREATININE - SERUM 0.5 mg/dL (0.6-1.3); GLUCOSE 130 mg/dL (74-106); POTASSIUM - SERUM 4.1 mmol/L (3.5-5.1); SODIUM 138 mmol/L (136-145); UREA NITROGEN 10 mg/dL (7-18); eGFR NON AFRICAN AMERICAN > 90 mL/min (90-120)
--- NOTE | 2018-07-31 08:00 | NUR ---
PT RESTING IN BED WITH EYES OPEN CALL LIGHT IN REACH NO PROBLEMS WILL MONITER
[2018-07-31 08:56] VITALS: BP 138/58
--- NOTE | 2018-07-31 16:31 | NUR ---
I have reviewed this patient and I concur with the Shift Assessment completed by the Licensed Practical Nurse today this shift.
[2018-07-31 16:39] VITALS: BP 127/59
[2018-07-31 16:52] VITALS: BP 133/62
--- NOTE | 2018-07-31 20:00 | NUR ---
RESUMING PT CARE. PT IS ALERT LAYING IN BED. NO S/S OF DISTRESS NOTED. BED IN LOW POSITION WITH CALL LIGHT IN REACH. SIDE RAILS UP X 2. WILL CONTINUE TO MONITOR PT AND FOLLOW PLAN OF CARE.
[2018-07-31 21:00] VITALS: BP 126/59
--- NOTE | 2018-07-31 23:21 | NUR ---
PT PUT ON TRILOGY AT THIS TIME.
[2018-08-01] VITALS: BP 137/67
[2018-08-01 04:00] VITALS: BP 138/67
--- NOTE | 2018-08-01 06:25 | NUR ---
I AGREE WITH GARMENT MANUFACTURER ASSESSMENT.
[2018-08-01 07:00] LABS: BASOPHILS 0 % (0-2); EOSINOPHILS 0.7 % (0-7); HEMATOCRIT 30.1 % (36.0-48.0); HEMOGLOBIN 9.9 g/dL (12-16); IMMATURE GRANULOCYTES 0.4 % (0-5); LYMPHOCYTES 13.8 % (15-50); MCH 29.6 pg (26.0-34.0); MCHC 32.9 g/dL (31.0-37.0); MCV 89.9 fL (80.0-100.0); MEAN PLATELET VOLUME 8.3 fL (7.4-10.4); MONOCYTES 7.2 % (2-11); NEUTROPHILS 77.9 % (40-80); PLATELET COUNT 354 10x3/uL (130-400); RBC 3.35 10x6/uL (4.00-5.40); RDW 14.6 % (11.5-14.5); WBC 10.3 10x3/uL (4.8-10.8)
[2018-08-01 07:12] LABS: ALBUMIN 2.3 g/dL (3.4-5.0); ALKALINE PHOSPHATASE 60 U/L (46-116); ALT (SGPT) 17 U/L (10-68); BILIRUBIN - TOTAL 0.27 mg/dL (0.2-1.3); CALC OSMOLALITY 274 mosm/kg (275-300); CALCIUM 8.1 mg/dL (8.5-10.1); CARBON DIOXIDE 35.5 mmol/L (21.0-32.0); CHLORIDE - SERUM 99 mmol/L (98-107); CREATININE - SERUM 0.4 mg/dL (0.6-1.3); GLUCOSE 89 mg/dL (74-106); POTASSIUM - SERUM 3.9 mmol/L (3.5-5.1); PROTEIN - SERUM 5.3 g/dL (6.4-8.2); SODIUM 138 mmol/L (136-145); UREA NITROGEN 12 mg/dL (7-18); eGFR NON AFRICAN AMERICAN > 90 mL/min (90-120)
[2018-08-01 09:39] VITALS: BP 128/55
--- NOTE | 2018-08-01 13:48 | NUR ---
Nutrition Follow Up: Pt was asleep at the time of RD visit. Interview deferred at this time. Diet: Regular PO Intake: 75% meal avg BM: 07/30/18 Meds and Labs reviewed Rec continue current diet. RD following.
[2018-08-01 16:10] LABS: ANA REFLEX - ANTICHROMATIN ABS <0.2 AI (0.0-0.9); ANA REFLEX - CENTROMERE B ABS <0.2 AI (0.0-0.9); ANA REFLEX - DBL STRANDED DNA 15 IU/mL (0-9); ANA REFLEX - DIRECT Positive (Negative); ANA REFLEX - JO-1 AB <0.2 AI (0.0-0.9); ANA REFLEX - RNP ANTIBODIES 0.4 AI (0.0-0.9); ANA REFLEX - SCL-70 <0.2 AI (0.0-0.9); ANA REFLEX - SJOGRENS AB SSA <0.2 AI (0.0-0.9); ANA REFLEX - SJOGRENS AB SSB <0.2 AI (0.0-0.9); ANA REFLEX - SMITH AB <0.2 AI (0.0-0.9)
[2018-08-01 18:48] VITALS: BP 169/70
[2018-08-01 18:56] VITALS: BP 144/63
[2018-08-01 20:00] VITALS: BP 128/58
--- NOTE | 2018-08-01 20:00 | NUR ---
RECEIVED PT IN BED AAOX4 RESP UNLABORED O2 ON 3.5 LPM NC SKIN W/D COLOR WNL TELEMETRY INTACT SR RATE 93 PT DENIES ANY NEEDS AT THIS TIME
--- NOTE | 2018-08-01 21:55 | NUR ---
GREETED PATIENT AND INTRODUCED MYSELF HER NURSE. PATIENT IS LAYING IN BED WATCHING TV. EVENING MEDICATIONS ADMINISTERED. DENIES ANY FURTHER NEEDS AT THIS TIME. CALL LIGHT IN REACH.
[2018-08-02] VITALS: BP 125/60
--- NOTE | 2018-08-02 00:44 | NUR ---
DC'D INFILTRATED PERIPHERAL IV IN RIGHT HAND. PATIENT TOLERATED PROCEDURE.
--- NOTE | 2018-08-02 01:01 | NUR ---
NEW PERIPHERAL IV 20 GAUGE STARTED ON THIRD ATTEMPT IN LEFT AC. PATIENT TOLERATED PROCEDURE.
--- NOTE | 2018-08-02 03:46 | NUR ---
ASSISTED PATIENT TO BATHROOM. BACK TO BED AND REPOSITIONED FOR COMFORT. CALL LIGHT IN REACH.
[2018-08-02 04:00] VITALS: BP 118/54
[2018-08-02 08:14] LABS: CALC OSMOLALITY 276 mosm/kg (275-300); CALCIUM 8.6 mg/dL (8.5-10.1); CARBON DIOXIDE 35.8 mmol/L (21.0-32.0); CHLORIDE - SERUM 99 mmol/L (98-107); CREATININE - SERUM 0.5 mg/dL (0.6-1.3); GLUCOSE 80 mg/dL (74-106); POTASSIUM - SERUM 3.8 mmol/L (3.5-5.1); SODIUM 139 mmol/L (136-145); UREA NITROGEN 12 mg/dL (7-18); eGFR NON AFRICAN AMERICAN > 90 mL/min (90-120)
[2018-08-02 08:17] LABS: BASOPHILS 0.1 % (0-2); EOSINOPHILS 1.2 % (0-7); HEMATOCRIT 33.4 % (36.0-48.0); HEMOGLOBIN 10.7 g/dL (12-16); IMMATURE GRANULOCYTES 0.4 % (0-5); LYMPHOCYTES 12.4 % (15-50); MCH 29.1 pg (26.0-34.0); MCV 90.8 fL (80.0-100.0); MEAN PLATELET VOLUME 8.1 fL (7.4-10.4); MONOCYTES 6.2 % (2-11); NEUTROPHILS 79.7 % (40-80); PLATELET COUNT 366 10x3/uL (130-400); RBC 3.68 10x6/uL (4.00-5.40); RDW 14.8 % (11.5-14.5); WBC 12.7 10x3/uL (4.8-10.8)
[2018-08-02 09:41] VITALS: BP 115/54
--- NOTE | 2018-08-02 10:13 | NUR ---
RESPIRATORY TEAM CALLED TO PRE-OP PT. PRE-OP MEDICATIONS GIVEN. WILL CTM.
--- NOTE | 2018-08-02 10:41 | NUR ---
PT LEAVING FOR PROCEDURE NOW. CONSENTS OBTAINED AND IN CHART. PT DENIES ANY QUESTIONS OR CONCERNS.
--- NOTE | 2018-08-02 11:51 | NUR ---
PT BACK FROM HER PROCEDURE AWAKE A&O SITTING UP IN BED. ASSISTED PT TO BR AND SHE VOIDED WITHOUT ANY DIFFICULTIES. RESPIRATORY AT BEDSIDE PUTTING PT ON HER TRILOGY PER X1HR THEN SHE CAN COME OFF. PT VERBALIZED UNDERSTANDING AND DENIES ANY QUESTIONS OR CONCERNS. CL IN REACH. WILL CTM.
--- NOTE | 2018-08-02 13:39 | NUR ---
PT ABLE TO EAT AND DRINK WITHOUT ANY DIFFICULTIES AFTER BEING NPO 1HR FROM BRONCHOSCOPY. PT ATE 100% OF HER LUNCH AND VOICED THANKS AND STATED SHE WAS VERY THIRSTY. PT NOW ON NC @3.5L IN PLACE AND TRILOGY IS TURNED OFF. NO CURRENT NEEDS. WILL CTM.
[2018-08-02 13:53] VITALS: BP 113/58
--- NOTE | 2018-08-02 16:43 | NUR ---
GINA STAFF HERE TO PROVIDE PT WITH NEW TRILOGY MASK HERS BEFORE WAS TOO BOTHERSOME AND TIGHT. PT LOVES HER NEW MASK AND AGREES TO WEAR IT. NO CURRENT NEEDS. WILL CTM.
--- NOTE | 2018-08-02 16:53 | MORECARE ---
CASE MANAGEMENT DISCHARGE SUMMARY PATIENT: DEMETRIS COHN UNIT: [id number] ADM DATE: 07/22/18 AGE: 72 : 41 SEX: F ROOM/BED: D.1210 AUTHOR: TEODORO CALVO PHYSICIAN: REFERRING PHYSICIAN: LIZ RIDLEY MD DATE OF SERVICE: 08/02/18 Discharge Plan Patient Name: DEMETRIS COHN Facility: [facility]:[place] : 1945 Planned Disposition: Anticipated Discharge Date: Discharge Date: Expected LOS: Initial Reviewer: [email or web address] Initial Review Date: 07/24/2018 Generated: 08/02/18 5:52 pm Comments DCP- Discharge Planning Updated by [email or web address]: Muriel Car on 08/02/18 3:[address] LATE ENTRY 1430 DR BERRY VISITED. SIGNATURE OBTAINED FOR AFFLO VEST PRESCRIPTION AND WRITTEN ORDER. 1435 TELEPHONE CALL TO [facility]. ADVISED THE PATIENT REQUIRES A BETTER FITTING MASK.. [facility] STATED THEY HAD ORDERED A NEW MASK FOR THE PATIENT. REC CB STATING THE [facility] RESPIRATORY THERAPIST WOULD BE ON SITE TO SEE THE PATIENT TODAY. THEY MAY HAVE A MASK THAT WILL FIT. CM ADVISED DR BERRY HE WAS PRESENT ON THE UNIT. CM FAXED PULMONARY CONSULKT NOTE AND PROGRESS W/ H/P TO [facility]. AWAIT THERAPIST'S VISIT. DCP- Discharge Planning Updated by [id number]: Tiki Chino on 07/29/18 3:[address] Patient Name: DEMETRIS COHN Encounter No: [id number] : 1945 Primary Insurance: [employer] Anticipated DC Date: Planned Disposition: External Planned Provider: : DCP follow-up note: Patient and family in agreement with discharge plan. No changes to plan. Case management will follow and assist as needed. Tiki ChinoPatient Name: DEMETRIS COHN Admission Status: ER Accout number: [id number] Admission Date: 07-22-2018 : 1945 Admission Diagnosis:SHORTNESS OF BREATH Attending: MAME RIDLEY Current LOS: 7 Anticipated DC Date: Planned Disposition: Primary Insurance: NOVASYSMCR Discharge Planning Comments: Trilogy was approved and being delivered in am to pts room . Clinical Support Nurse: Tiki Chino DCP- Discharge Planning Updated by [id number]: Tiki Chino on 07/29/18 12:[address] Patient Name: DEMETRIS COHN Admission Status: ER Accout number: [id number] Admission Date: 07-22-2018 : 1945 Admission Diagnosis:SHORTNESS OF BREATH Attending: MAME RIDLEY Current LOS: 7 Anticipated DC Date: Planned Disposition: [facility] Discharge Planning Comments: pt has home o2 thru [employer] and pt wants [employer] for trilogy.. analy signed [employer] is in process of getting pt set up. Clinical Support Nurse: Tiki De Souzaman DCP- Discharge Planning Updated by [id number]: Theresa Hilario on 07/24/18 3:[address] Patient Name: DEMETRIS COHN Admission Status: ER Accout number: [id number] Admission Date: 07-22-2018 : 1945 Admission Diagnosis: Attending: MAME RIDLEY Current LOS: 2 Anticipated DC Date: Planned Disposition: [facility] Discharge Planning Comments: CM MEET WITH PT AFTER GETTING VERBAL CONSENT TO CONTINUE WITH INITAL ASSESSMENT AND DISCHARGE NEEDS. PT LIVES AT HOME ALONE AND STATES HOME IS A SAFE DISCHARGE. PT HAS O2 AND NEBULIZERS AT HOME. SHE STATES MAY NEED MEALS ON WHEELS, HH, OR IPRH WHEN DISCHARGED. CM WILL FOLLOW AND ASSIST WITH DC NEEDS. Clinical Support Nurse: Theresa Hilario DCPIA - Discharge Planning Initial Assessment Updated by [email or web address]: Theresa Hilario on 07/24/18 4:14 pm * Is the patient Alert and Oriented? Yes * PCP [facility] * [facility] * ADLs Independent * Equipment Nebulizer Oxygen * Community resources currently utilized None * Additional services required to return to the preadmission environment? No * Can the patient safely return to the preadmission environment? Yes * Has this patient been hospitalized within the prior 30 days at any hospital? No Coverage Notice Reviewer: [id number] - Tiki Chino Notice Issued Date-Time: 07/29/2018 9:30 Notice Type: Patient Choice Letter Notice Delivered To: Patient Relationship to Patient: Self Ditch Digger Name: Delivery Method: HAND - Hand Delivered Jaz Days: Prior Verbal Notification: Recipient Understood Notice: Yes Recipient Signature: Yes Med Rec Note Co-signed by Attending: Coverage Notice Comment: Reviewer: [email or web address] Alex Yepez Notice Issued Date-Time: 07/31/2018 13:20 Notice Type: IM Discharge Notice Notice Delivered To: Patient Relationship to Patient: Self Ditch Digger Name: Delivery Method: HAND - Hand Delivered Jaz Days: Prior Verbal Notification: Recipient Understood Notice: Recipient Signature: Med Rec Note Co-signed by Attending: Coverage Notice Comment: Last DP export: 07/29/18 3:47 p Patient Name: DEMETRIS COHN Page [id number] at 1653 All edits/amendments must be made on the electronic document DICTATION DATE: 08/02/181651 VETERINARIAN POULTRY: KIM 08/02/181651 RPT#: [id number] DC DATE: STATUS: ADM IN [facility] [address] [place] [address] END OF REPORT
--- NOTE | 2018-08-02 19:30 | NUR ---
PM ROUNDS MADE. PT SITTING UP IN BED RESTING. DENIES PAIN AT THIS TIME. DENIES FURTHER NEEDS. FALL PRECAUTIONS IN PLACE. WILL CTM.
[2018-08-02 19:43] VITALS: BP 114/54
--- NOTE | 2018-08-02 21:30 | NUR ---
VITALS STABLE. PT TOOK MEDS WITHOUT DIFFICULTY. IV TO L AC WITH NS @ 20 ML/HR, DRSG C/D/I, PATENT, NO REDNESS OR EDEMA NOTED. 3.5L O2 VIA NC. BREATHING EVEN AND UNLABORED. NORMAL SINUS ON TELE. A/O X 4. UP AB ALCIRA, GAIT STEADY. DENIES FURTHER CONERNS AT THIS TIME. BED LOWERED AND LOCKED. NON SKID SOCKS IN PLACE. SR UP X 2. CL IN REACH. WILL CTM.
[2018-08-03 00:58] VITALS: BP 127/54
--- NOTE | 2018-08-03 02:33 | NUR ---
RESP IN PT ROOM AT THIS TIME.
--- NOTE | 2018-08-03 03:44 | NUR ---
I have reviewed this patient and I concur with the Shift Assessment completed by the Licensed Practical Nurse today this shift.
[2018-08-03 04:43] VITALS: BP 111/49
[2018-08-03 05:31] LABS: BASOPHILS 0.1 % (0-2); EOSINOPHILS 0.2 % (0-7); HEMATOCRIT 30.8 % (36.0-48.0); HEMOGLOBIN 10.2 g/dL (12-16); IMMATURE GRANULOCYTES 0.4 % (0-5); LYMPHOCYTES 3.5 % (15-50); MCH 30.1 pg (26.0-34.0); MCHC 33.1 g/dL (31.0-37.0); MCV 90.9 fL (80.0-100.0); MEAN PLATELET VOLUME 8.3 fL (7.4-10.4); MONOCYTES 2.3 % (2-11); NEUTROPHILS 93.5 % (40-80); PLATELET COUNT 346 10x3/uL (130-400); RBC 3.39 10x6/uL (4.00-5.40); RDW 15.1 % (11.5-14.5); WBC 14.8 10x3/uL (4.8-10.8)
[2018-08-03 05:51] LABS: CALC OSMOLALITY 277 mosm/kg (275-300); CALCIUM 8.3 mg/dL (8.5-10.1); CARBON DIOXIDE 32.1 mmol/L (21.0-32.0); CHLORIDE - SERUM 100 mmol/L (98-107); CREATININE - SERUM 0.5 mg/dL (0.6-1.3); GLUCOSE 129 mg/dL (74-106); POTASSIUM - SERUM 4.2 mmol/L (3.5-5.1); SODIUM 137 mmol/L (136-145); UREA NITROGEN 17 mg/dL (7-18); eGFR NON AFRICAN AMERICAN > 90 mL/min (90-120)
--- NOTE | 2018-08-03 06:22 | NUR ---
PT SITTING UP IN BED RESTING AT THIS TIME RECIEVING A BREATHING TREATMENT. PT DENIES FURTHER NEEDS AT THIS TIME. BREATHING EVEN AND UNLABORED. FALL PREACAUTIONS IN PLACE. BED LOWERED AND LOCKED. CL IN REACH. WILL CTM.
--- NOTE | 2018-08-03 08:09 | NUR ---
RESUMING PT CARE, PT IS SITTING UP IN BED AND IS A&O X 3. CALL LIGHT IN REACH, WILL CONTINUE TO MONITOR AND FOLLOW PLAN OF CARE.
[2018-08-03 08:14] VITALS: BP 129/56
[2018-08-03 13:17] VITALS: BP 106/67
[2018-08-03 16:09] VITALS: BP 159/57
--- NOTE | 2018-08-03 16:58 | NUR ---
I HAVE REVIEWED THIS PATIENT AND I CONCUR WITH THE SHIFT ASSESSMENT COMPLETED BY THE LICENSED PRACTICAL NURSE TODAY THIS SHIFT.
[2018-08-03 20:08] VITALS: BP 120/64
--- NOTE | 2018-08-03 20:18 | NUR ---
REST QUIETLY IN CHAIR, CALL LIGHT IN REACH.
[2018-08-04 00:20] VITALS: BP 125/48
--- NOTE | 2018-08-04 01:30 | NUR ---
REST QUIETLY IN BED, CALL LIGHT IN REACH.
--- NOTE | 2018-08-04 02:20 | NUR ---
I have reviewed this patient and I concur with the Shift Assessment completed by the Licensed Practical Nurse today this shift.
--- NOTE | 2018-08-04 04:18 | NUR ---
REST IN BED, CALL LIGHT IN REACH.
[2018-08-04 04:58] VITALS: BP 141/68
--- NOTE | 2018-08-04 07:30 | NUR ---
RECEIVED A/A/OX4. DENIES ANY PAIN OR DISCOMFORT AND NO REQUESTS VOICED. ASSESSMENT COMPLETED. PT HOPING TO BE DISCHARGED TODAY. STATES SHE IS ANXIOIUS TO BE DISCHARGED AND BELIEVES SHE IS READY FOR IT. WILL CONTINUE POC
[2018-08-04 07:38] LABS: BASOPHILS 0 % (0-2); EOSINOPHILS 0.1 % (0-7); HEMATOCRIT 32.3 % (36.0-48.0); HEMOGLOBIN 10.5 g/dL (12-16); IMMATURE GRANULOCYTES 0.5 % (0-5); LYMPHOCYTES 4.3 % (15-50); MCH 29.5 pg (26.0-34.0); MCHC 32.5 g/dL (31.0-37.0); MCV 90.7 fL (80.0-100.0); MEAN PLATELET VOLUME 8.3 fL (7.4-10.4); MONOCYTES 4.1 % (2-11); PLATELET COUNT 386 10x3/uL (130-400); RBC 3.56 10x6/uL (4.00-5.40); RDW 15.1 % (11.5-14.5)
[2018-08-04 08:01] LABS: CALC OSMOLALITY 273 mosm/kg (275-300); CALCIUM 8.4 mg/dL (8.5-10.1); CARBON DIOXIDE 34.4 mmol/L (21.0-32.0); CHLORIDE - SERUM 97 mmol/L (98-107); CREATININE - SERUM 0.5 mg/dL (0.6-1.3); GLUCOSE 139 mg/dL (74-106); POTASSIUM - SERUM 4.1 mmol/L (3.5-5.1); SODIUM 136 mmol/L (136-145); UREA NITROGEN 13 mg/dL (7-18); eGFR NON AFRICAN AMERICAN > 90 mL/min (90-120)
[2018-08-04 08:08] VITALS: BP 124/61
[2018-08-04] MEDS ORDERED: OMNICEF300 MG PO (10:28)
[2018-08-04] MEDS ORDERED: PROTONIX40 MG PO (10:28)
[2018-08-04] MEDS ORDERED: STERAPRED DS 1010 MG PO (10:29)
--- NOTE | 2018-08-04 11:55 | NUR ---
REVIEWED DISCHARGE INSTRUCTIONS WITH PT AND VERBALIZES UNDERSTANDING WITH NO QUESTIONS. SL REMOVED WITH TIP INTACT AND DIRECTOR CLINICAL APPLICATIONS REMOVED. WAITING ON HER RIDE NOW.
[2018-08-04 13:07] LABS: ACID FAST SMEAR Negative (()); AFB SPECIMEN PROCESSING Concentration (())
--- NOTE | 2018-08-04 14:03 | NUR ---
LEFT FLOOR VIA W/C WITH ALL PERSONAL BELONGINGS. LEFT FACILITY VIA PRIVATE VEHICLE WITH HER DAUGHTER. WAS USING PORTABLE 02 WHEN SHE LEFT.
--- NOTE | 2018-08-06 08:19 | MORECARE ---
CASE MANAGEMENT DISCHARGE SUMMARY PATIENT: DEMETRIS COHN UNIT: [id number] ADM DATE: 07/22/18 AGE: 72 : 43 SEX: F ROOM/BED: D.1210 AUTHOR: TEODORO CALVO PHYSICIAN: REFERRING PHYSICIAN: LIZ RIDLEY MD DATE OF SERVICE: 08/06/18 Discharge Plan Patient Name: DEMETIRS COHN Facility: [facility]:[place] : 1945 Planned Disposition: Anticipated Discharge Date: Discharge Date: 08/04/2018 Expected LOS: Initial Reviewer: [email or web address] Initial Review Date: 07/24/2018 Generated: 08/06/18 9:19 am Comments DCP- Discharge Planning Updated by [email or web address]: Muriel Car on 08/02/18 3:[address] LATE ENTRY 1430 DR BERRY VISITED. SIGNATURE OBTAINED FOR AFFLO VEST PRESCRIPTION AND WRITTEN ORDER. 1435 TELEPHONE CALL TO [facility]. ADVISED THE PATIENT REQUIRES A BETTER FITTING MASK.. [facility] STATED THEY HAD ORDERED A NEW MASK FOR THE PATIENT. REC CB STATING THE [facility] RESPIRATORY THERAPIST WOULD BE ON SITE TO SEE THE PATIENT TODAY. THEY MAY HAVE A MASK THAT WILL FIT. CM ADVISED DR BERRY HE WAS PRESENT ON THE UNIT. CM FAXED PULMONARY CONSULKT NOTE AND PROGRESS W/ H/P TO [facility]. AWAIT THERAPIST'S VISIT. DCP- Discharge Planning Updated by [id number]: Tiki Chino on 07/29/18 3:[address] Patient Name: DEMETRIS COHN Encounter No: [id number] : 1945 Primary Insurance: PingMD Anticipated DC Date: Planned Disposition: External Planned Provider: : DCP follow-up note: Patient and family in agreement with discharge plan. No changes to plan. Case management will follow and assist as needed. Tiki ChinoPatient Name: DEMETRIS COHN Admission Status: ER Accout number: [id number] Admission Date: 07-22-2018 : 1945 Admission Diagnosis:SHORTNESS OF BREATH Attending: MAME RIDLEY Current LOS: 7 Anticipated DC Date: Planned Disposition: Primary Insurance: N[employer]CR Discharge Planning Comments: Trilogy was approved and being delivered in am to pts room . Multiple Punch Press Operator: Tiki Chino DCP- Discharge Planning Updated by [email or web address]: Tiki Chino on 07/29/18 12:[address] Patient Name: DEMETRIS COHN Admission Status: ER Accout number: [id number] Admission Date: 07-22-2018 : 1945 Admission Diagnosis:SHORTNESS OF BREATH Attending: MAME RIDLEY Current LOS: 7 Anticipated DC Date: Planned Disposition: [facility] Discharge Planning Comments: pt has home o2 thru [employer] and pt wants [employer] for trilogy.. analy signed [employer] is in process of getting pt set up. Multiple Punch Press Operator: Tiki Chino DCP- Discharge Planning Updated by [id number]: Theresa Yanelis on 07/24/18 3:[address] Patient Name: DEMETRIS COHN Admission Status: ER Accout number: [id number] Admission Date: 07-22-2018 : 1945 Admission Diagnosis: Attending: MAME RIDLEY Current LOS: 2 Anticipated DC Date: Planned Disposition: [facility] Discharge Planning Comments: CM MEET WITH PT AFTER GETTING VERBAL CONSENT TO CONTINUE WITH INITAL ASSESSMENT AND DISCHARGE NEEDS. PT LIVES AT HOME ALONE AND STATES HOME IS A SAFE DISCHARGE. PT HAS O2 AND NEBULIZERS AT HOME. SHE STATES MAY NEED MEALS ON WHEELS, HH, OR IPRH WHEN DISCHARGED. CM WILL FOLLOW AND ASSIST WITH DC NEEDS. Multiple Punch Press Operator: Theresa Hilario DCPIA - Discharge Planning Initial Assessment Updated by [email or web address]: Theresa Hilario on 07/24/18 4:14 pm * Is the patient Alert and Oriented? Yes * PCP [facility] * [facility] * ADLs Independent * Equipment Nebulizer Oxygen * Community resources currently utilized None * Additional services required to return to the preadmission environment? No * Can the patient safely return to the preadmission environment? Yes * Has this patient been hospitalized within the prior 30 days at any hospital? No Coverage Notice Reviewer: [id number] - Tiki Chino Notice Issued Date-Time: 07/29/2018 9:30 Notice Type: Patient Choice Letter Notice Delivered To: Patient Relationship to Patient: Self Clinical Consultant Name: Delivery Method: HAND - Hand Delivered Jaz Days: Prior Verbal Notification: Recipient Understood Notice: Yes Recipient Signature: Yes Med Rec Note Co-signed by Attending: Coverage Notice Comment: Reviewer: [email or web address] Alex Yepez Notice Issued Date-Time: 07/31/2018 13:20 Notice Type: IM Discharge Notice Notice Delivered To: Patient Relationship to Patient: Self Clinical Consultant Name: Delivery Method: HAND - Hand Delivered Jaz Days: Prior Verbal Notification: Recipient Understood Notice: Recipient Signature: Med Rec Note Co-signed by Attending: Coverage Notice Comment: Last DP export: 08/02/18 3:52 p Patient Name: DEMETRIS COHN Page [id number] at 0819 All edits/amendments must be made on the electronic document DICTATION DATE: 08/06/18817 CRT: KIM 08/06/18817 RPT#: [id number] DC DATE:08/04/18 STATUS: DIS IN [facility] [address] [place] [address] END OF REPORT
[2018-08-06 11:10] LABS: IMMUNOGLOBULIN E 1262 IU/mL (6-495)
[2018-08-07 14:11] LABS: FUNGUS STAIN Final report (())
[2018-08-20 09:15] LABS: FUNGUS CULTURE RESULT 1 Candida albicans (())
[2018-09-03 07:18] LABS: FUNGUS MYCOLOGY CULTURE Final report (())
[2018-09-24 12:09] LABS: ACID FAST CULTURE Negative (())
== END 2018-08-04 13:55 | disposition home or self-care (01) | DRG 190 ==
LOC: D.ER 14:06 → D.M3 17:31
PROVIDERS: Emergency Medicine; Family Medicine; Internal Medicine Nephrology; Internal Medicine Pulmonary Disease; ADMIT Emergency Medicine; ATTEND Emergency Medicine
PROC: 0B948ZZ Drainage of Right Upper Lobe Bronchus, Via Natural or Artificial Opening Endoscopic (ICD-10-PCS; 2018-08-02)
PROC: 0B988ZZ Drainage of Left Upper Lobe Bronchus, Via Natural or Artificial Opening Endoscopic (ICD-10-PCS; 2018-08-02)
PROC: 0B918ZZ Drainage of Trachea, Via Natural or Artificial Opening Endoscopic (ICD-10-PCS; 2018-08-02)
PROC: 0B958ZZ Drainage of Right Middle Lobe Bronchus, Via Natural or Artificial Opening Endoscopic (ICD-10-PCS; 2018-08-02)
PROC: 0B938ZZ Drainage of Right Main Bronchus, Via Natural or Artificial Opening Endoscopic (ICD-10-PCS; 2018-08-02)
PROC: 0B978ZZ Drainage of Left Main Bronchus, Via Natural or Artificial Opening Endoscopic (ICD-10-PCS; 2018-08-02)
PROC: 0B968ZZ Drainage of Right Lower Lobe Bronchus, Via Natural or Artificial Opening Endoscopic (ICD-10-PCS; 2018-08-02)
PROC: 0B9B8ZZ Drainage of Left Lower Lobe Bronchus, Via Natural or Artificial Opening Endoscopic (ICD-10-PCS; 2018-08-02)
PROC: 0B998ZZ Drainage of Lingula Bronchus, Via Natural or Artificial Opening Endoscopic (ICD-10-PCS; 2018-08-02)
PROC: 0B928ZZ Drainage of Carina, Via Natural or Artificial Opening Endoscopic (ICD-10-PCS; principal; 2018-08-02 11:05)
DX: J47.0 Bronchiectasis with acute lower respiratory infection (principal); J96.21 Acute and chronic respiratory failure with hypoxia; J98.11 Atelectasis; E44.0 Moderate protein-calorie malnutrition; J15.0 Pneumonia due to Klebsiella pneumoniae; J47.1 Bronchiectasis with (acute) exacerbation; J15.1 Pneumonia due to Pseudomonas; Z99.81 Dependence on supplemental oxygen; J43.9 Emphysema, unspecified; I10 Essential (primary) hypertension; Z68.21 Body mass index [BMI] 21.0-21.9, adult; Z72.0 Tobacco use